=== PATIENT | female | born 1980 | race American Indian/Alaskan Native ===

== ENCOUNTER 2021-11-01 08:55 | Day surgery (SDC) | payer OTHER ==
[2021-10-31 13:19] LABS: Basophils % (Auto) 0.5 % (0.0-1.8); Eosinophils # (Auto) 0.1 K/mm3 (0.0-0.4); Eosinophils % (Auto) 1.1 % (0.0-4.3); Lymphocytes # (Auto) 2.3 K/mm3 (1.2-5.4); Lymphocytes % (Auto) 26.9 % (13.4-35.0); Mean Corpuscular HGB Conc 29 % (30-34); Monocytes # (Auto) 0.8 K/mm3 (0.0-0.8); Monocytes % (Auto) 8.8 % (0.0-7.3); Platelet Count 456 K/mm3 (140-440); Red Blood Count 4.97 M/mm3 (3.65-5.03)
[2021-10-31 13:36] LABS: Hematocrit 27.6 % (30.3-42.9); Hemoglobin 8.1 gm/dl (10.1-14.3); Mean Corpuscular Volume 55 fl (79-97); Red Cell Distribution Width 21.1 % (13.2-15.2)
[2021-10-31 13:43] LABS: Blood Urea Nitrogen 8 mg/dL (7-17); Calcium 9.5 mg/dL (8.4-10.2); Hemolysis Index 0
[2021-10-31 13:47] LABS: BUN/Creatinine Ratio 13
--- NOTE | 2021-10-31 14:00 | Anesthesia Consultation ---
Anesthesia Consult and Med Hx Date of service: 11/01/21 - Airway Anesthetic Teeth Evaluation: Crowns, Partials ROM Head & Neck: Adequate Mental/Hyoid Distance: Adequate Mallampati Class: Class II Intubation Access Assessment: Good - Pre-Operative Health Status ASA Pre-Surgery Classification: ASA2 Proposed Anesthetic Plan: General Nerve Block: TAP - Pulmonary Hx Smoking: No Hx Respiratory Symptoms: No (+2FS) Hx Sleep Apnea: No - Cardiovascular System Hx Hypertension: Yes (ECG [id number] reports it was ok) - Central Nervous System Hx Seizures: Yes (As a child x1) Hx Psychiatric Problems: No - Gastrointestinal Hx Gastroesophageal Reflux Disease: No - Endocrine Hx Non-Insulin Dependent Diabetes: Yes Hx Thyroid Disease: Yes Hx Hypothyroidism: Yes (?) Hx Hyperthyroidism: Yes (Not being treated) - Hematic Hx Anemia: Yes Hx Sickle Cell Disease: No - Other Systems Hx Alcohol Use: Yes (Occas) Hx Cancer: No Hx Obesity: Yes
[~2021-11-01 08:55] MED LIST: ACETAMINOPHEN 500 MG TAB PO ONE; CELECOXIB 200 MG CAP PO NR; LACTATED RINGERS 1,000 ML IV SCH; MAGNESIUM OXIDE 400 MG TAB PO ONE; MIDAZOLAM 2 MG/2 ML INJ IV NR; fentaNYL 100 MCG/2 ML INJ IV ONE
--- NOTE | 2021-11-01 10:27 | Short Stay Summary ---
Short Stay Documentation Date of service: 11/01/21 Narrative H&P: 41-year-old -1-0-3 with a history of symptomatic uterine fibroids and dysfunctional uterine bleeding. The patient had a pelvic ultrasound that demonstrated a uterus with a maximum size of 10 cm. She had evidence of 2 leiomyomas measuring 2.7 cm and 1.4 cm respectively. The patient has failed medical management and has had elected elected to undergo definitive surgical management. - History Principal diagnosis: Symptomatic uterine fibroids Past Medical History: hypertension, other (Uterine fibroids) Past Surgical History: Other (Tubal ligation; breast mass excision) Social history: single - Allergies and Medications Current Medications: Allergies No Known Allergies Allergy (Unverified 10/25/21 20:19) Home Medications Medication Instructions Recorded Confirmed Last Taken Type Cholecalciferol Vit D3 [Vitamin D3 50 mcg PO QDAY 10/25/21 10/25/21 Unknown History 400 UNIT TAB] Ferrous Sulfate [Ferrous Sulfate 324 mg PO DAILY 10/25/21 10/25/21 Unknown History 324 MG] Irbesartan/Hydrochlorothiazide 1 each PO DAILY 10/25/21 10/25/21 Unknown History [Irbesartan-Hctz 150-12.5 mg Tb] Metformin HCl [metFORMIN] 1,000 mg PO BID 10/25/21 10/25/21 Unknown History Active Medications Celecoxib (Celecoxib 200 Mg Cap) 400 mg PO PREOP NR Stop: 11/01/21 23:59 Lactated Ringer's (Lactated Ringers) 1,000 mls @ 125 mls/hr IV DIRECT GEN Midazolam HCl (Midazolam 2 Mg/2 Ml Inj) 2 mg IV PREOP NR Stop: 11/01/21 23:59 - Physical exam General appearance: no acute distress Integumentary: no rash HEENT: Atraumatic Lungs: Clear to auscultation Breasts: deferred Heart: Regular rate Gastrointestinal: normal Female Genitourinary: deferred Rectal Exam: deferred - Brief post op/procedure progress note Date of procedure: 11/01/21 Pre-op diagnosis: Dysfunctional uterine bleeding; symptomatic uterine fibroid Post-op diagnosis: same Procedure: Robotic hysterectomy and bilateral salpingectomy Surgeon: TUCKER KIRK Estimated blood loss: 50-100ml Pathology: list (Uterus, cervix, bilateral tubes) Specimen disposition: to lab Condition: stable - Hospital course Hospital course: The patient was admitted for a robotic hysterectomy bilateral salpingectomy. Please see operative note for details of surgery. Her postoperative course was uneventful. - Disposition Condition at discharge: Good Disposition: 01 HOME / SELF CARE / HOMELESS Short Stay Discharge Plan Activity: other (Pelvic rest for 6 weeks) Diet: regular Additional Instructions: Pelvic rest for 6 weeks Schedule postoperative follow-up in 4 weeks No tub baths for 4 weeks but patient may shower Patient may drive in 2-week
[2021-11-01] MEDS ORDERED: ACETAMINOPHEN 500 MG TAB ONE (10:56)
[2021-11-01] MEDS ORDERED: fentaNYL 100 MCG/2 ML INJ ONE ×3 (10:57→12:56)
[2021-11-01] MEDS ORDERED: MAGNESIUM OXIDE 400 MG TAB PO ONE (10:58)
[2021-11-01] MEDS ORDERED: HYDROmorphone 0.5 MG/0.5 ML INJ IV PRN ×2 (10:59)
[2021-11-01] MEDS ORDERED: ONDANSETRON 4 MG/2 ML INJ IV PRN (10:59)
--- NOTE | 2021-11-01 10:59 | Anesthesia Day of Surgery ---
Anesthesia Day of Surgery - Day of Surgery Patient Examined: Yes Patient H&P Reviewed: Yes Patient is NPO: Yes
[2021-11-01] MEDS ORDERED: ceFAZolin/Water 2 GM/20 ML 2 GM/20 ML SYRINGE IV NR (11:00)
[2021-11-01] MEDS ORDERED: dexAMETHasone 4 MG/ML VIAL ONE (11:55)
[2021-11-01] MEDS ORDERED: BUPIVACAINE-EPINEPHRINE/PF 0.25%-1:200,000 (30 ML) VIAL INFILTRATI ONE (11:55)
[2021-11-01] MEDS ORDERED: propofoL 200 MG/20 ML VIAL IV ONE (12:55)
[2021-11-01] MEDS ORDERED: LIDOCAINE PF 100 MG/5 ML (CARDIAC SYRINGE) IV ONE (12:56)
[2021-11-01] MEDS ORDERED: ONDANSETRON 4 MG/2 ML INJ ONE (12:57)
[2021-11-01] MEDS ORDERED: dexAMETHasone 20 MG/5 ML VIAL ONE (12:57)
[2021-11-01] MEDS ORDERED: ROCURONIUM 50 MG/5 ML INJ IV ONE (12:57)
[2021-11-01] MEDS ORDERED: NEOMY 40 MG/POLYMYXIN B 200,000 UNITS/ML (GU) AMPULE IR ONE ×2 (13:36→14:54)
[2021-11-01] MEDS ORDERED: MIDAZOLAM 2 MG/2 ML INJ IV NR (14:30)
[2021-11-01] MEDS ORDERED: LACTATED RINGERS 1,000 ML ONE (14:32)
[2021-11-01] MEDS ORDERED: SODIUM CHLORIDE 0.9% IRRIG SOLN 2000 ML IR ONE (14:53)
[2021-11-01] MEDS ORDERED: SODIUM CHLORIDE 0.9% IRR 1,500 ML BOTTLE IR ONE (14:54)
[2021-11-01] MEDS ORDERED: NEOSTIGMINE 10MG/10 ML INJ MDV ONE (15:10)
[2021-11-01] MEDS ORDERED: GLYCOPYRROLATE 0.4 MG/2 ML INJ ONE (15:10)
--- NOTE | 2021-11-01 15:15 | Operative Report ---
Operative Report Operative Report: Date of surgery: November 01, 2021 Preoperative diagnoses: Dysfunctional uterine bleeding; symptomatic uterine fibroid Postoperative diagnoses: Same as above Procedure: Robotic hysterectomy; bilateral salpingectomy; lysis of adhesions Surgeon: Soraida Reyes M.D. Museum Technician: Nguyễn Garcia Anesthesia: Gen. endotracheal anesthesia Estimated blood loss: Less than 100 mL Pathology: Uterus, cervix, bilateral tubes Indication: 41-year-old -1-0-3 with a history of dysfunctional uterine ble eding and symptomatic uterine fibroids. Procedure: The patient was taken to the operating room and given general endotracheal anesthesia without complication after a time out was performed confirming the surgery and identity of the patient. She was prepped and draped in a normal sterile fashion. A bivalve speculum was placed in the patient's vagina and a single-tooth tenaculum placed on the anterior lip of the cervix. The uterus was sounded with the uterine sound. A stay suture with 0-vicryl was placed at 12 o'clock on the anterior cervix. A Tinybop uterine manipulator was placed in the bivalve speculum was then removed. A warm laparotomy sponge was placed in the vagina. Attention was then turned to the patient's abdomen where a 8 millimeter supra umbilical skin incision was then made. A Veress needle was placed and peritoneal entry was verified water-filled syringe. Insufflation of the peritoneal cavity was performed with CO2 gas. The 8 mm trocar was then placed under direct visualization. An additional 8 mm robotic trocar was placed on the patient's left and right lateral side just opposite of the supraumbilical trocar. An additional 5 mm right lateral trocar was then placed as the accessory port. The patient was then placed in steep Trendelenburg. The da Ladonna robot was then engaged. A fenestrated forcep was placed in arm 2 and a vessel sealer was placed in arm 1. Omental adhesions to the anterior abdominal wall the surgeon then transferred to the surgical console. Lysis of adhesions of the omentum to the anterior abdominal wall were performed with the vessel sealer to improve visualization into the pelvis. The mesosalpinx was then isolated on the right. The vessel sealer was used to coagulate the mesosalpinx which was then transected. The tube was transected from the ovary. The tubo- ovarian ligament was then coagulated and transected. The round ligament was then coagulated and transected also. The vesicouterine peritoneum was then en tered from the patient's right side. The uterine vessels were then coagulated with the vessel sealer. The vessels were then transected . Attention was then turned to the patient's left side where the tubo-ovarian ligament and mesosalpinx were again isolated coagulated and transected. The vesical peritoneum was then entered from the left and joined in the midline. Peritoneum was reflected off of the lower uterine segment. Uterine vessels were then coagulated and then transected. The blood supply to the uterus was adequately contained, a posterior colpotomy was made. The V care ring was visualized. Posterior colpotomy was created with the monopolar scissors. The incision was continued circumferentially until anterior colpotomy was made. The cervix and uterus were amputated from the vaginal cuff. The uterus was then removed along with the tubes bilaterally through the vagina and a warm laparotomy sponge was placed and maintain the pneumoperitoneum. The vaginal cuff was then closed in a running fashion with V lock suture. Irrigation of the pelvis was performed. Surgicel powder was applied to the incision. The [employer] robot was undocked. The trocars were removed and the insuffliation was released. The skin was then reapproximated with 4-0 Monocryl. The tissue was sent to pathology which included the cervix, bilateral tubes and uterus. The patient was then successf ully extubated. She was then taken to the recovery room in stable condition. All sponge laps and needle counts were correct x2.
--- NOTE | 2021-11-01 16:26 | Post Anesthesia Evaluation ---
- Post Anesthesia Evaluation Patient Participated: Yes Airway Patent: Yes Stable Respiratory Function: Yes Nausea/Vomiting: No Temp > 96.8F: Yes Pain Manageable: Yes Adequeate Hydration: Yes Anesthesia Complications: No Block Receding Appropriately: Yes Patient on Ventilator: No
[2021-11-01] MEDS ORDERED: MIDAZOLAM 5 MG/5 ML INJ MDV IV NR ×2 (16:30)
[2021-11-01] MEDS ORDERED: MIDAZOLAM 5 MG/5 ML INJ MDV IV ONE (16:30)
[2021-11-01 19:20] VITALS: BP 138/86
== END 2021-11-01 18:25 | disposition home or self-care (01) ==
LOC: EDBD 08:55 → OR 08:55
PROVIDERS: ATTEND Obstetrics & Gynecology
DX: N93.8 Other specified abnormal uterine and vaginal bleeding (principal); D25.0 Submucous leiomyoma of uterus; N72 Inflammatory disease of cervix uteri; D39.11 Neoplasm of uncertain behavior of right ovary; I10 Essential (primary) hypertension; E66.9 Obesity, unspecified; E11.9 Type 2 diabetes mellitus without complications; E03.9 Hypothyroidism, unspecified; Z72.89 Other problems related to lifestyle; D64.9 Anemia, unspecified; Z79.899 Other long term (current) drug therapy; Z79.84 Long term (current) use of oral hypoglycemic drugs; Z98.51 Tubal ligation status; Z98.890 Other specified postprocedural states; Z68.33 Body mass index [BMI] 33.0-33.9, adult
CPT/HCPCS: 36415; 58552; 64488; 80048; 82962; 84703; 85025; 86850; 86900; 86901; 88307; J0690; J1100; J1815; J2001; J2250; J2405; J2704; J2710; J3010; J3490; J7120; S2900; 64450